=== PATIENT | male | born 1955 | race Caucasian/White ===

== ENCOUNTER 2016-07-12 19:38 | Emergency (ER) | payer OTHER ==
[~2016-07-12] VITALS: Ht 175.3 cm; Wt 78.0 kg
[~2016-07-12 19:38] MED LIST: BACTRIM DS TAB1 EAC1 ORAL; IBUPROFEN600 MG ORAL; KEFLEX500 MG ORAL; NORCO 5-325 TA1 EACH ORAL; SULFAMETHOXAZO1 EAC2 ORAL
[2016-07-12 19:59] VITALS: BP 136/65
[2016-07-12] MEDS ORDERED: Lidocaine 1% 10mg/ml/Epi 0.005mg/ml 30ml vial INJ ONE (20:15)
[2016-07-12] MEDS ORDERED: Bactrim DS (160mg/800mg) tab ORAL ONE (20:15)
[2016-07-12] MEDS ORDERED: Cephalexin 500mg cap ORAL ONE (20:15)
[2016-07-12] MEDS ORDERED: KEFLEX500 MG ORAL (20:41)
[2016-07-12] MEDS ORDERED: SULFAMETHOXAZO1 EAC2 ORAL (20:41)
[2016-07-12 20:50] VITALS: BP 131/75
--- NOTE | 2016-07-12 22:38 | Emergency Room Report ---
History of Present Illness General Chief Complaint: Skin Rash/Abscess Source: Patient Present Illness HPI Patient is a a 61-year-old male presented after increased right upper extremity pain. The patient gradual onset of symptoms of the past week. Patient reported having used injection drugs. He had subjective fever. He denied any other locations of pain. He had not been vomiting or having any chest pain. Allergies: Coded Allergies: No Known Allergies (Unverified , 07/17/14) Patient History Past Medical History: see triage record Reviewed Nursing Documentation: PMH: Agreed, PSxH: Agreed Nursing Documentation-PMH Past Medical History: No Stated History Hx Gastrointestinal Problems: No - HEP C, Appendectomy in 1984 Review of Systems All Other Systems: negative except mentioned in HPI Physical Exam Vital Signs Date Time Temp Pulse Resp B/P Pulse Ox O2 Delivery O2 Flow Rate FiO2 07/12/16 19:49 97.5 83 15 136/65 98 Room Air Procedures Incision and Drainage Incision and Drainage : Consent: Written Site: right upper arm Blade Size: 15 I & D Procedure: betadine prep, sterile drapes applied, sterile dressing applied, gauze wick placed Wound Location: upper extremity Wound's Depth, Shape: superficial Wound Length (cm): 1 Wound Explored: clean Anesthesia: Lidocaine w/ Epi Volume Anesthetic (ccs): 5 Patient Tolerated: Well Complications: None Medical Decision Making Diagnostic Impression: Primary Impression: Abscess ER Course The patient was noted to have right upper extremity pain and swelling. Differential diagnosis included but was not limited to fracture, contusion, , vascular insufficiency, aneurysm, cellulitis, abscess. The patient was consented for incision and drainage. The purulent material was expressed from patient's skin incision. Patient given oral antibiotics.The patient is advised to follow up with primary care doctor in 1-2 days. Patient is advised to return if any worsening condition or if any changes in status that are concerning. Last Vital Signs Date Time Temp Pulse Resp B/P Pulse Ox O2 Delivery O2 Flow Rate FiO2 07/12/16 20:50 82 14 131/75 98 Room Air 07/12/16 19:59 97.5 Status: improved Disposition: HOME, SELF-CARE Condition: Stable Scripts Cephalexin* (KEFLEX*) 500 Mg Capsule 500 MG ORAL Q6H, #28 CAP Prov: Roberto Champagne 07/12/16 Sulfamethoxazole/Trimethoprim Ds Tablet* (SULFAMETHOXAZOLE-TMP DS TABLET*) 1 Each Tablet 1 TAB ORAL TWICE A DAY, #20 TAB Prov: Roberto Champagne 07/12/16 Patient Instructions: Roberto Torres Jul 12, 2016 22:38
== END 2016-07-12 20:50 | disposition home or self-care (01) ==
LOC: EMR 19:55
DX: L02.413 Cutaneous abscess of right upper limb (principal); B19.20 Unspecified viral hepatitis C without hepatic coma; Z90.49 Acquired absence of other specified parts of digestive tract; F19.10 Other psychoactive substance abuse, uncomplicated
CPT/HCPCS: 10060

== ENCOUNTER 2016-11-09 20:42 | Emergency (ER) | payer OTHER ==
[~2016-11-09] VITALS: Ht 175.3 cm; Wt 79.4 kg
--- NOTE | 2016-11-09 21:10 | Emergency Room Report ---
History of Present Illness General Chief Complaint: Upper Extremity Injury Source: Patient Present Illness HPI This is a 61-year-old male with a history of IV drug use. He presents with an abscess to the left arm. This has been there for 3-4 days. Painful. Swollen. This happen before. He is right-hand dominant. No fever or chills. No nausea no vomiting. Worse with palpation. Allergies: Coded Allergies: No Known Allergies (Unverified , 07/17/14) Patient History Past Medical History: see triage record, old chart reviewed Past Surgical History: other Pertinent Family History: none Social History: Denies: drug use Immunizations: other Reviewed Nursing Documentation: PMH: Agreed, PSxH: Agreed Review of Systems Eye: Denies: blurred vision, eye pain ENT: Denies: ear pain, nose congestion, throat swelling Respiratory: Denies: cough, shortness of breath Cardiovascular: Denies: chest pain, palpitations Gastrointestinal: Denies: abdominal pain, diarrhea, nausea, vomiting Musculoskeletal: Denies: back pain, joint pain Skin: Denies: rash Neurological: Denies: headache, numbness Endocrine: Denies: increased thirst, increased urine Hematologic/Lymphatic: Denies: easy bruising All Other Systems: negative except mentioned in HPI Physical Exam Vital Signs Date Time Temp Pulse Resp B/P Pulse Ox O2 Delivery O2 Flow Rate FiO2 11/09/16 20:46 98.2 90 18 126/74 100 Room Air vitals normal Sp02 EP Interpretation: reviewed, normal General Appearance: well appearing, no apparent distress, alert Head: normocephalic, atraumatic Eyes: bilateral eye EOMI, bilateral eye PERRL ENT: hearing grossly normal, normal pharynx Neck: full range of motion, supple, no meningismus Respiratory: chest non-tender, lungs clear, normal breath sounds Cardiovascular #1: regular rate, rhythm, no murmur Gastrointestinal: normal bowel sounds, non tender, no mass, no organomegaly, no bruit, non-distended Musculoskeletal: back normal, gait/station normal, normal range of motion, other - Left upper arm: Is a large abscess measuring about 5-6 cm x 4 cm to the tricep area. Warm to the touch. Full range of motion the elbow. Full range of motion of the shoulder. He has IV jansen. Neurologic: alert, oriented x3 Psychiatric: mood/affect normal Skin: warm/dry Procedures Incision and Drainage Incision and Drainage : Consent: Verbal Site: Left tricep Blade Size: 11 I & D Procedure: betadine prep, sterile drapes applied, sterile dressing applied, gauze wick placed Wound Location: upper extremity Anesthesia: 1% Lidocaine Volume Anesthetic (ccs): 5 Patient Tolerated: Well Complications: None Progress Area clean with Betadine. Local anesthetic 1% lidocaine. I made a 3 cm incision. There was a lot of scar tissue. I had to go deeper to get to the pus pocket. There was moderate amount of pus expressed.-related area broken up with Larissa forcep. I urinated wound with a liter of saline. It was then packed with iodoform gauze. Patient tolerated procedure without a problem. Medical Decision Making Diagnostic Impression: Primary Impression: Abscess Additional Impression: Intravenous drug user ER Course Patient with an abscess to his left upper extremity. This is secondary to IV drug use and skin popping. No evidence of foreign body or necrotizing fasciitis. No evidence of septic joint. We'll discharge home. Last Vital Signs Date Time Temp Pulse Resp B/P Pulse Ox O2 Delivery O2 Flow Rate FiO2 11/09/16 20:46 98.2 90 18 126/74 100 Room Air Status: improved Disposition: HOME, SELF-CARE Condition: Stable Scripts Hydrocodone/Acetaminophen 5-325* (HYDROCODONE/ACETAMINOPHEN 5-325*) 1 Each Tablet 1 TAB ORAL Q6H Y for For Pain, #20 TAB 0 Refills Prov: POLLY SANTIAGO M.D. 11/09/16 Trimethoprim/Sulfamethoxazole 160/800* (BACTRIM DS TABLET*) 1 Each Tablet 1 TAB ORAL Q12H, #14 TAB 0 Refills Prov: POLLY SANTIAGO M.D. 11/09/16 Additional Instructions: Abstain from drugs and alcohol. Followup with your doctor or return here in 2 days for recheck. Return sooner if worse. POLLY SANTIAGO M.D. November 09, 2016 21:10
[2016-11-09] MEDS ORDERED: Bactrim DS (160mg/800mg) tab ORAL ONE (21:15)
[2016-11-09] MEDS ORDERED: Norco 5mg/325mg tab ONE (21:23)
[2016-11-09] MEDS ORDERED: HYDROCODON-ACE1 EA15 ORAL (21:37)
[2016-11-09] MEDS ORDERED: BACTRIM DS TAB1 EAC1 ORAL (21:37)
[2016-11-09] MEDS ORDERED: Norco 5mg/325mg tab ORAL ONE (21:45)
[2016-11-09 21:48] VITALS: BP 128/76
[2016-11-09 21:49] VITALS: BP 126/74
== END 2016-11-09 21:50 | disposition home or self-care (01) ==
LOC: EMR 21:15
DX: L02.414 Cutaneous abscess of left upper limb (principal); F19.20 Other psychoactive substance dependence, uncomplicated
CPT/HCPCS: 10060; 99284

== ENCOUNTER 2016-11-22 09:17 | Emergency (ER) | payer OTHER ==
[~2016-11-22] VITALS: Ht 175.3 cm; Wt 74.8 kg
[~2016-11-22 09:17] MED LIST changes: +HYDROCODON-ACE1 EA15 ORAL
[2016-11-22 09:23] VITALS: BP 123/71
[2016-11-22] MEDS ORDERED: Famotidine 20 MG/ 2ML VIAL IVP ONE (09:30)
[2016-11-22 10:29] VITALS: BP 123/53
[2016-11-22 12:12] VITALS: BP 125/63
[2016-11-22 12:46] VITALS: BP 125/63
--- NOTE | 2016-11-22 14:10 | Emergency Room Report ---
History of Present Illness General Chief Complaint: Nausea, Vomiting, and Diarrhea Source: Patient Present Illness HPI 61-year-old male presents ED complaining of nausea and vomiting. States that he used heroin last night. States that this morning when driving he felt nausea and vomiting. Denies use heroine today. Denies abdominal pain. Denies any other drug use. Denies chest pain or shortness of breath. No other aggravating relieving factors. Denies any other associated symptoms Allergies: Coded Allergies: No Known Allergies (Unverified , 07/17/14) Patient History Past Medical History: none Past Surgical History: none Pertinent Family History: none Social History: Denies: alcohol use, drug use, smoking Immunizations: UTD Reviewed Nursing Documentation: PMH: Agreed, PSxH: Agreed Nursing Documentation-PMH Past Medical History: No Stated History Review of Systems All Other Systems: negative except mentioned in HPI Physical Exam Vital Signs Date Time Temp Pulse Resp B/P Pulse Ox O2 Delivery O2 Flow Rate FiO2 11/22/16 09:09 96.1 75 20 123/71 100 Room Air Sp02 EP Interpretation: reviewed, normal General Appearance: alert, GCS 15, non-toxic, mild distress Head: normocephalic, atraumatic Eyes: bilateral eye PERRL, bilateral eye normal inspection ENT: hearing grossly normal, normal pharynx, no angioedema, normal voice Neck: full range of motion, supple/symm/no masses Respiratory: chest non-tender, lungs clear, normal breath sounds, speaking full sentences Cardiovascular #1: regular rate, rhythm, no edema Cardiovascular #2: 2+ carotid (R), 2+ carotid (L), 2+ radial (R), 2+ radial (L) , 2+ dorsalis pedis (R), 2+ dorsalis pedis (L) Gastrointestinal: normal bowel sounds, non tender, soft, non-distended, no guarding, no rebound Rectal: deferred Genitourinary: normal inspection, no CVA tenderness Musculoskeletal: back normal, gait/station normal, normal range of motion, non- tender Neurologic: alert, oriented x3, responsive, motor strength/tone normal, sensory intact, speech normal Psychiatric: judgement/insight normal, memory normal, mood/affect normal, no suicidal/homicidal ideation Reflexes: 3+ bicep (R), 3+ bicep (L), 3+ tricep (R), 3+ tricep (L), 3+ knee (R) , 3+ knee (L) Skin: normal color, no rash, warm/dry, well hydrated Lymphatic: no adenopathy Medical Decision Making Diagnostic Impression: Primary Impression: Heroin abuse Additional Impression: Gastritis Qualified Codes: K29.00 - Acute gastritis without bleeding ER Course Hospital Course 61-year-old M presents to ED with N/V after using heroin last night differential diagnosis: gastritis, SBO, cholecystits Clinical course Patient placed on stretcher. On ekg monitor tech. After initial history and physical I ordered labs, IV fluids, Zofran and pepcid patient declined lab draw Upon reassessment, patient states symptoms has improved. I feel this is a highly complex case requiring extensive working including EKG/ Rhythm strip, Xray/CT/US, Blood/urine lab work, repeat exams while in ED, and administration of strong opiates/narcotics for pain control, admission to hospital or close patient follow up. Diagnosis - heroin abuse, gastritis Stable and discharged to home with prescriptions for zofran. Followup with PMD. Return to ED if symptoms recur or worsen Chest X-Ray Diagnostic Results Chest X-Ray Ordered: No Last Vital Signs Date Time Temp Pulse Resp B/P Pulse Ox O2 Delivery O2 Flow Rate FiO2 11/22/16 12:46 96.1 72 16 125/63 100 Room Air Status: improved Disposition: HOME, SELF-CARE Condition: Stable Patient Instructions: Opioid Withdrawal PALAK HILL M.D. Nov 22, 2016 14:10
== END 2016-11-22 12:46 | disposition home or self-care (01) ==
LOC: EDBD 09:17 → EMR 09:39
DX: F11.10 Opioid abuse, uncomplicated (principal); K29.70 Gastritis, unspecified, without bleeding
CPT/HCPCS: 96360; 96361; 96374; 96375; 99284; J2405; S0028

== ENCOUNTER 2017-08-14 15:25 | Emergency (ER) | payer MEDICAID ==
[~2017-08-14] VITALS: Ht 175.3 cm; Wt 74.8 kg
[2017-08-14] MEDS ORDERED: Morphine Sulfate 4mg/ml Inj IVP ONE (16:00)
[2017-08-14] MEDS ORDERED: Vancomycin 1 GM in NS 275 ML IV ONE (16:00)
[2017-08-14] MEDS ORDERED: Vancomycin 1gm inj IVPB ONE (16:53)
[2017-08-14 17:00] VITALS: BP 130/67
[2017-08-14] MEDS ORDERED: ROXICODONE15 MG ORAL (17:01)
[2017-08-14 17:07] LABS: BASOPHILS % (AUTO) 1.1 % (0.0-2.0); EOSINOPHILS % (AUTO) 2.1 % (0.0-3.0); HEMATOCRIT 42.2 % (42.0-52.0); HEMOGLOBIN 13.8 G/DL (14.2-18.0); LYMPHOCYTES % (AUTO) 18.4 % (20.0-45.0); MEAN CORPUSCULAR VOLUME 86 FL (80-99); MONOCYTES % (AUTO) 5.9 % (1.0-10.0); NEUTROPHILS % (AUTO) 72.5 % (45.0-75.0); PLATELET COUNT 269 K/UL (150-450); RED BLOOD COUNT 4.93 M/UL (4.70-6.10); RED CELL DISTRIBUTION WIDTH 13.7 % (11.6-14.8); WHITE BLOOD COUNT 12.4 K/UL (4.8-10.8)
[2017-08-14 17:23] LABS: ANION GAP 7 mmol/L (5-15); BLOOD UREA NITROGEN 15 mg/dL (7-18); CALCIUM 9.4 MG/DL (8.5-10.1); CARBON DIOXIDE 29 MMOL/L (21-32); CHLORIDE 99 MMOL/L (98-107); POTASSIUM 3.6 MMOL/L (3.5-5.1); SODIUM 135 MMOL/L (136-145)
[2017-08-14 17:28] LABS: ALANINE AMINOTRANSFERASE 33 U/L (12-78); ALBUMIN 2.8 G/DL (3.4-5.0); ALBUMIN/GLOBULIN RATIO 0.5 (1.0-2.7); ALKALINE PHOSPHATASE 223 U/L (46-116); ASPARTATE AMINO TRANSFERASE 29 U/L (15-37); BILIRUBIN,TOTAL 0.3 MG/DL (0.2-1.0)
[2017-08-14 18:00] VITALS: BP 117/67
[2017-08-14] MEDS ORDERED: BACTRIM DS TAB1 EAC1 ORAL (18:10)
[2017-08-14] MEDS ORDERED: CLINDAMYCIN HC150 MG ORAL (18:10)
[2017-08-14 19:00] VITALS: BP 123/68
--- NOTE | 2017-08-14 21:57 | Emergency Room Report ---
History of Present Illness General Chief Complaint: Skin Rash/Abscess Source: Patient, Medical Record Present Illness HPI Patient has a history of IV drug use. Patient states that he uses heroin. His last use was yesterday. He has had pain in his left upper extremity for the last 4 days. He states that the area has become swollen. He believes there is an abscess there. He denies any fever. Denies any nausea vomiting diarrhea chills. Symptoms noted the severe.No other modifying factors. No other associated signs and symptoms. No other complaints were noted. Allergies: Coded Allergies: No Known Allergies (Unverified , 07/17/14) Patient History Past Medical History: other - IV drug use Past Surgical History: none Pertinent Family History: none Social History: Reports: smoking, alcohol use, drug use Reviewed Nursing Documentation: PMH: Agreed, PSxH: Agreed Nursing Documentation-PMH Past Medical History: No History, Except For Review of Systems All Other Systems: negative except mentioned in HPI Physical Exam Vital Signs Date Time Temp Pulse Resp B/P (MAP) Pulse Ox O2 Delivery O2 Flow Rate FiO2 08/14/17 15:37 98.5 98 18 134/67 96 Room Air 98.4 Sp02 EP Interpretation: reviewed, normal General Appearance: normal inspection, well appearing, no apparent distress, alert Head: atraumatic Eyes: bilateral eye normal inspection, bilateral eye PERRL ENT: normal ENT inspection, hearing grossly normal, normal voice Neck: normal inspection, full range of motion, supple, no bony tend Respiratory: normal inspection, lungs clear, normal breath sounds, no respiratory distress, no retraction, no wheezing Cardiovascular #1: regular rate, rhythm, no edema Gastrointestinal: normal inspection, normal bowel sounds, non tender, soft, no guarding, no hernia Genitourinary: no CVA tenderness Musculoskeletal: back normal, swelling - left upper extremity Neurologic: normal inspection, alert, responsive, speech normal Psychiatric: normal inspection, judgement/insight normal, mood/affect normal Skin: normal inspection, normal color, no rash Medical Decision Making Diagnostic Impression: Primary Impression: Cellulitis Additional Impressions: Intravenous drug user Abscess ER Course Patient presents emergency department today complaining left upper extremity pain and swelling. Differential considerations include abscess, cellulitis, inflammation just to name a few. Patient exam is consistent with an abscess. I felt the patient require IV antibiotics and likely admission to the hospital. Also felt the patient require any incision and drainage. Procedure note: Using 18-gauge needle patient's left upper extremity was prepped in a sterile manner I was able to aspirate approximately 3 mL of pus. Patient tolerated procedure well difficulty. The needle was removed. Because there is evidence of abscess and pus in patient's left upper extremity I felt the patient require incision and drainage. Procedure note: After patient's left upper extremity was prepped in a sterile manner and verbal consent was obtained using a 11 blade I made a 1 cm incision over the area of maximal swelling. I then it try to explore with a clamp. Unfortunately I wasn' t able to obtain any pus. Patient did receive local anesthetic prior to this procedure. Patient saw procedure well difficulty. Given the patient evidence of abscess cellulitis and I wasn't able to express further pus I was concerned that there might be abscess that perhaps deeper in the muscular area. I felt that this likely will require specialist evaluation and possible drainage by IR orthopedics. I wanted to admit the patient the patient declined to be admitted. Patient understands risks of leaving the hospital against senior medical writer. Patient did agree to receive one dose of vancomycin prior discharge. Patient understands risks of leaving against senior medical writer includes or loss of life and limb. Patient voiced understanding. Patient left the hospital AGAINST MEDICAL ADVICE the patient was given prescription antibiotics for clindamycin and Bactrim he is advised to emergency Department states that he will consider returning in the morning for to be admitted for IV antibiotics. Labs Test 08/14/17 16:45 White Blood Count 12.4 K/UL (4.8-10.8) Red Blood Count 4.93 M/UL (4.70-6.10) Hemoglobin 13.8 G/DL (14.2-18.0) Hematocrit 42.2 % (42.0-52.0) Mean Corpuscular Volume 86 FL (80-99) Mean Corpuscular Hemoglobin 28.1 PG (27.0-31.0) Mean Corpuscular Hemoglobin Concent 32.8 G/DL (32.0-36.0) Red Cell Distribution Width 13.7 % (11.6-14.8) Platelet Count 269 K/UL (150-450) Mean Platelet Volume 6.1 FL (6.5-10.1) Neutrophils (%) (Auto) 72.5 % (45.0-75.0) Lymphocytes (%) (Auto) 18.4 % (20.0-45.0) Monocytes (%) (Auto) 5.9 % (1.0-10.0) Eosinophils (%) (Auto) 2.1 % (0.0-3.0) Basophils (%) (Auto) 1.1 % (0.0-2.0) Prothrombin Time 10.5 SEC (9.30-11.50) Prothromb Time International Ratio 1.0 (0.9-1.1) Activated Partial Thromboplast Time 30 SEC (23-33) Sodium Level 135 MMOL/L (136-145) Potassium Level 3.6 MMOL/L (3.5-5.1) Chloride Level 99 MMOL/L (98-107) Carbon Dioxide Level 29 MMOL/L (21-32) Anion Gap 7 mmol/L (5-15) Blood Urea Nitrogen 15 mg/dL (7-18) Creatinine 1.0 MG/DL (0.55-1.30) Estimat Glomerular Filtration Rate > 60 mL/min (>60) Glucose Level 119 MG/DL (74-106) Calcium Level 9.4 MG/DL (8.5-10.1) Total Bilirubin 0.3 MG/DL (0.2-1.0) Aspartate Amino Transf (AST/SGOT) 29 U/L (15-37) Alanine Aminotransferase (ALT/SGPT) 33 U/L (12-78) Alkaline Phosphatase 223 U/L (46-116) Total Protein 7.9 G/DL (6.4-8.2) Albumin 2.8 G/DL (3.4-5.0) Globulin 5.1 g/dL Albumin/Globulin Ratio 0.5 (1.0-2.7) Last Vital Signs Date Time Temp Pulse Resp B/P (MAP) Pulse Ox O2 Delivery O2 Flow Rate FiO2 08/14/17 19:39 98.3 08/14/17 19:00 123/68 08/14/17 18:00 76 20 98 Room Air Status: improved Disposition: AGAINST MEDICAL ADVICE Condition: Serious Scripts Clindamycin Hcl* (CLINDAMYCIN HCL*) 150 Mg Capsule 300 MG ORAL FOUR TIMES A DAY for 10 Days, CAP Prov: MONIKA SIMON M.D. 08/14/17 Trimethoprim/Sulfamethoxazole 160/800* (BACTRIM DS TABLET*) 1 Each Tablet 1 TAB ORAL Q12H, #20 TAB 0 Refills Prov: MONIKA SIMON M.D. 08/14/17 Referrals: [facility],REFERRING (PCP) Patient Instructions: MONIKA Treviño M.D. Aug 14, 2017 21:57
== END 2017-08-14 19:00 | disposition home or self-care (01) ==
LOC: EDBEDREQ 16:28 → EMR 17:42
DX: L03.114 Cellulitis of left upper limb (principal); F19.10 Other psychoactive substance abuse, uncomplicated
CPT/HCPCS: 10060; 36415; 80053; 85025; 85610; 85730; 96361; 96374; 99284; J2270; J3370; J7050

== ENCOUNTER 2018-08-28 11:21 | Emergency (ER) | payer MEDICAID, OTHER ==
[~2018-08-28] VITALS: Ht 175.3 cm; Wt 74.8 kg
[~2018-08-28 11:21] MED LIST changes: +CLINDAMYCIN HC150 MG ORAL; +ROXICODONE15 MG ORAL
--- NOTE | 2018-08-28 11:30 | NUR ---
ED Nurse Note: AMBULATED IN TO ER FROM HOME DUE TO ABCESS ON RIGHT UPPER ARM X1 WEEK.
[2018-08-28] MEDS ORDERED: NKM (11:38)
[2018-08-28] MEDS ORDERED: oxyCODONE HCL/Acetaminophen 5/325mg ORAL ONE (12:00)
[2018-08-28] MEDS ORDERED: Lidocaine 1% 10mg/ml/Epi 0.005mg/ml 30ml vial INJ ONE (12:00)
--- NOTE | 2018-08-28 12:13 | Emergency Room Report ---
History of Present Illness General Chief Complaint: Skin Rash/Abscess Source: Patient Present Illness HPI 63-year-old male with no major medical problems comes ER with complaints of having right arm redness pain and swelling for about one week, denies fever, abdominal pain, chest pain, any other symptoms. Allergies: Coded Allergies: No Known Allergies (Unverified , 08/28/18) Patient History Past Medical History: see triage record Reviewed Nursing Documentation: PMH: Agreed; PSxH: Agreed Nursing Documentation-PMH Past Medical History: No History, Except For Review of Systems All Other Systems: negative except mentioned in HPI Physical Exam Vital Signs Date Time Temp Pulse Resp B/P (MAP) Pulse Ox O2 Delivery O2 Flow Rate FiO2 08/28/18 11:36 98.1 77 16 136/77 97 Room Air Sp02 EP Interpretation: reviewed, normal General Appearance: no apparent distress, alert, non-toxic Head: normocephalic Eyes: left eye normal inspection, left eye PERRL, left eye EOMI ENT: normal ENT inspection, hearing grossly normal, normal pharynx, no angioedema, normal voice, moist mucus membranes Neck: normal inspection, full range of motion, supple, supple/symm/no masses Respiratory: chest non-tender, lungs clear, normal breath sounds, chest symmetrical, palpation of chest normal Cardiovascular #1: normal peripheral pulses, regular rate, rhythm Cardiovascular #2: 2+ radial (R), 2+ radial (L) Gastrointestinal: normal inspection, non tender, soft, no mass, no guarding, no rebound Rectal: deferred Genitourinary: normal inspection, no CVA tenderness Musculoskeletal: back normal, gait/station normal, normal range of motion, non- tender, no calf tenderness Neurologic: alert, responsive, treating machine operator III-XII nml as tested, motor strength/tone normal, sensory intact, speech normal Psychiatric: judgement/insight normal, memory normal, mood/affect normal, no suicidal/homicidal ideation Skin: normal color, warm/dry, normal turgor, other - 4x4cm area under R deltoid area of R proximal arm with erythema, warmth, tenderness, fluctuance Lymphatic: no adenopathy Procedures Incision and Drainage Incision and Drainage : Consent: Verbal Site: RUE Blade Size: 11 I & D Procedure: betadine prep, sterile drapes applied, sterile dressing applied, gauze wick placed Wound Location: upper extremity Anesthesia: 1% Lidocaine, Lidocaine w/ Epi Volume Anesthetic (ccs): 4 Patient Tolerated: Well Complications: None Progress Loculations were broken up using forceps, and 1 inch out of form gauze was used to pack, roughly 3-4 mL of chunky purulent material was expressed, and estimated blood loss was 4 mL. Medical Decision Making Diagnostic Impression: Primary Impression: Cellulitis Additional Impression: Abscess ER Course Patient had abscess I&D, will give oral antibiotics for starting cellulitis, patient is nondiabetic, no history of IV drug use, will discharge with wound check in 2 days.. Last Vital Signs Date Time Temp Pulse Resp B/P (MAP) Pulse Ox O2 Delivery O2 Flow Rate FiO2 08/28/18 11:36 98.1 77 16 136/77 97 Room Air Disposition: HOME, SELF-CARE Condition: Stable TONYA HENDERSON M.D Aug 28, 2018 12:13
[2018-08-28] MEDS ORDERED: Haloperidol 5mg/ml Inj IM ONE (12:15)
[2018-08-28] MEDS ORDERED: LORazepam Inj 2mg/ml 1ml IV ONE (12:15)
--- NOTE | 2018-08-28 12:18 | NUR ---
ED Nurse Note: CLEARIFIED WITH ERMD REGARDING NEW MEDS, RECEIVED VERBAL ORDER TO CANCEL THE HALDOL AND ATIVAN.
[2018-08-28] MEDS ORDERED: IBUPROFEN600 MG ORAL (12:53)
[2018-08-28] MEDS ORDERED: BACTRIM DS TAB1 EAC1 ORAL (12:53)
[2018-08-28 13:00] VITALS: BP 136/77
[2018-08-28 13:16] VITALS: BP 136/77
--- NOTE | 2018-08-28 13:20 | NUR ---
ER DISCHARGE NOTE:pt. had I&D done by ER MD then dry dressing was placed on right arm Patient is cleared to be discharged per ERMD, pt is aox4, on room air, with stable vital signs. pt was given dc and prescription instructions, pt was able to verbalize understanding, pt is able to ambulate with steady gait. pt took all belongings.
== END 2018-08-28 13:56 | disposition home or self-care (01) ==
LOC: EMR 12:21
DX: L03.113 Cellulitis of right upper limb (principal); L02.413 Cutaneous abscess of right upper limb
CPT/HCPCS: 10060; 99282; Z7502

== ENCOUNTER 2019-02-14 14:36 | Inpatient (IN) | payer OTHER ==
[~2019-02-14] VITALS: Ht 175.3 cm; Wt 68.5 kg
[~2019-02-14 14:36] MED LIST changes: +NKM
[2019-02-14 14:44] VITALS: BP 122/71
--- NOTE | 2019-02-14 14:52 | NUR ---
ED Nurse Note: Patient walked into ED c/o right upper arm/ left upper arm "infection" and warmth, nodules for 2 weeks after using IV drug injections. patient reports he was here seen at [facility] [place] [facility] and was prescribed antibiotics for the same symptoms before, which was helping with his symptoms. however, 2 weesk the symptoms got worse all of a sudden. patient reports he feels like he has fever and chills intermittently for 2 weeks. Patient is alert awake x4 ambulatory steady gait, breathing unlabored and even.
--- NOTE | 2019-02-14 16:37 | NUR ---
ED Nurse Note: called lab for lab draw.
[2019-02-14 17:37] LABS: HEMATOCRIT 33.8 % (42.0-52.0); HEMOGLOBIN 11.2 G/DL (14.2-18.0); MEAN CORPUSCULAR VOLUME 82 FL (80-99); PLATELET COUNT 311 K/UL (150-450); RED BLOOD COUNT 4.13 M/UL (4.70-6.10); RED CELL DISTRIBUTION WIDTH 13.2 % (11.6-14.8); WHITE BLOOD COUNT 11.6 K/UL (4.8-10.8)
[2019-02-14 17:42] LABS: ANION GAP 9 mmol/L (5-15); BLOOD UREA NITROGEN 17 mg/dL (7-18); CALCIUM 9.3 MG/DL (8.5-10.1); CARBON DIOXIDE 31 MMOL/L (21-32); CHLORIDE 104 MMOL/L (98-107); POTASSIUM 4.2 MMOL/L (3.5-5.1); SODIUM 144 MMOL/L (136-145)
--- NOTE | 2019-02-14 17:56 | Emergency Room Report ---
History of Present Illness General Chief Complaint: Skin Rash/Abscess Source: Patient (Tawana Sparks) Present Illness HPI 63-year-old male presents to the emergency department complaining of 6 out of 10 severity pain, tenderness, swelling and erythema to the right upper extremity x2 weeks. Patient reports multiple lumps in the skin where he was "skin popping "injecting opioids. Patient with history of IV drug use he is currently on methadone he states his last use 4 days ago he denies experiencing withdrawal symptoms at this time. Patient does report that he has been having fevers and chills x2 weeks. He reports past medical history of hepatitis C, thyroid disorder, left eye blindness in addition to his drug use. He denies chest pain, palpitations or shortness of breath. No other aggravating or relieving factors at this time. The patient states he is up-to-date with his tetanus vaccinations. (Tawana Sparks) Allergies: Coded Allergies: No Known Allergies (Unverified , 08/28/18) Patient History Past Medical History: see triage record Past Surgical History: none Pertinent Family History: none Social History: Reports: drug use - IVDU opiates Reviewed Nursing Documentation: PMH: Agreed; PSxH: Agreed (Tawana Sparks) Nursing Documentation-PMH Past Medical History: No History, Except For History Of Psychiatric Problem: Yes - DRUG USE (Tawana Sparks) Review of Systems All Other Systems: negative except mentioned in HPI (Tawana Sparks) Physical Exam Vital Signs Date Time Temp Pulse Resp B/P (MAP) Pulse Ox O2 Delivery O2 Flow Rate FiO2 02/14/19 14:44 98.1 93 18 122/71 100 Room Air Sp02 EP Interpretation: reviewed, normal General Appearance: alert, GCS 15, non-toxic, mild distress Head: normocephalic, atraumatic Eyes: bilateral eye normal inspection, bilateral eye PERRL ENT: hearing grossly normal, normal voice Neck: full range of motion Respiratory: lungs clear, normal breath sounds, no respiratory distress, no wheezing, speaking full sentences Cardiovascular #1: regular rate, rhythm, normal capillary refill Cardiovascular #2: 2+ radial (R), 2+ radial (L) Musculoskeletal: back normal, gait/station normal, normal range of motion, non- tender - no bony ttp, inflammation - large palpable nodule of the right bicep medially. Neurologic: alert, oriented x3, responsive, motor strength/tone normal, sensory intact, speech normal, grossly normal Psychiatric: judgement/insight normal Skin: other - This patient has multiple track markings on bilateral upper extremities. Multiple possible indurated nodules of the soft tissue throughout the bilateral upper extremities. There is a larger palpable nodule on the medial aspect of the right biceps area which has surrounding erythema and warmth to palpation. This large nodule is approximately 3.5 cm in diameter no obvious palpable fluctuance. Lymphatic: no adenopathy (Tawana Sparks) Medical Decision Making PA Attestation Dr. Zheng Is my supervising Physician whom patient management has been discussed with. (Tawana Sparks) Diagnostic Impression: Primary Impression: Cellulitis Qualified Codes: L03.113 - Cellulitis of right upper limb Additional Impression: Heroin abuse ER Course 63-year-old male presents to the emergency department complaining of 6 out of 10 severity pain, tenderness, swelling and erythema to the right upper extremity x2 weeks. Patient reports multiple lumps in the skin where he was "skin popping "injecting opioids. Patient with history of IV drug use he is currently on methadone he states his last use 4 days ago he denies experiencing withdrawal symptoms at this time. Patient does report that he has been having fevers and chills x2 weeks. He reports past medical history of hepatitis C, thyroid disorder, left eye blindness in addition to his drug use. He denies chest pain, palpitations or shortness of breath. No other aggravating or relieving factors at this time. The patient states he is up-to-date with his tetanus vaccinations. Ddx considered but are not limited to cellulitis, abscess, necrotizing fasciitis , insect bites just to name a few. Vital signs: are WNL, pt. is afebrile H&PE are most consistent with soft tissue cellulitis with suspicion for deep tissue abscess in a patient with IV drug use. --This patient has multiple track markings on bilateral upper extremities. Multiple possible indurated nodules of the soft tissue throughout the bilateral upper extremities. There is a larger palpable nodule on the medial aspect of the right biceps area which has surrounding erythema and warmth to palpation. This large nodule is approximately 3.5 cm in diameter no obvious palpable fluctuance. ORDERS: -CBC: WBC's 11.6 -BMP: Normal renal function, patient is candidate for IV contrast -Lactic acid: 1.6 -Blood cultures: Pending -CRP: elevated at 17.4 -CT R UE w. Contrast & CT L UE w. Contrast:Patient was unable to tolerate IV contrast and imaging study was not able to be completed. ED INTERVENTIONS: - IV Vancomycin and Zosyn Consultation w. Dr. Ledesma regarding possible ST abscess in complicated area. DISPOSITION: at this time pt. will be admitted to Dr. Melchor for Cellulitis requiring IV antibiotics and surgical evaluation of nodules/abscess of Right UE. Dr. Melchor agreed to admit the pt. and to continue pt. care management. Labs Test 02/14/19 17:10 White Blood Count 11.6 K/UL (4.8-10.8) Red Blood Count 4.13 M/UL (4.70-6.10) Hemoglobin 11.2 G/DL (14.2-18.0) Hematocrit 33.8 % (42.0-52.0) Mean Corpuscular Volume 82 FL (80-99) Mean Corpuscular Hemoglobin 27.1 PG (27.0-31.0) Mean Corpuscular Hemoglobin Concent 33.2 G/DL (32.0-36.0) Red Cell Distribution Width 13.2 % (11.6-14.8) Platelet Count 311 K/UL (150-450) Mean Platelet Volume 5.0 FL (6.5-10.1) Neutrophils (%) (Auto) % (45.0-75.0) Lymphocytes (%) (Auto) % (20.0-45.0) Monocytes (%) (Auto) % (1.0-10.0) Eosinophils (%) (Auto) % (0.0-3.0) Basophils (%) (Auto) % (0.0-2.0) Differential Total Cells Counted 100 Neutrophils % (Manual) 77 % (45-75) Lymphocytes % (Manual) 14 % (20-45) Monocytes % (Manual) 5 % (1-10) Eosinophils % (Manual) 3 % (0-3) Basophils % (Manual) 0 % (0-2) Band Neutrophils 1 % (0-8) Platelet Estimate Adequate Platelet Morphology Normal Hypochromasia 1+ Anisocytosis 1+ Erythrocyte Sedimentation Rate 86 MM/HR (0-20) Sodium Level 144 MMOL/L (136-145) Potassium Level 4.2 MMOL/L (3.5-5.1) Chloride Level 104 MMOL/L (98-107) Carbon Dioxide Level 31 MMOL/L (21-32) Anion Gap 9 mmol/L (5-15) Blood Urea Nitrogen 17 mg/dL (7-18) Creatinine 1.0 MG/DL (0.55-1.30) Estimat Glomerular Filtration Rate > 60 mL/min (>60) Glucose Level 96 MG/DL (74-106) Lactic Acid Level 1.60 mmol/L (0.4-2.0) Calcium Level 9.3 MG/DL (8.5-10.1) C-Reactive Protein, Quantitative 17.4 mg/dL (0.00-0.90) (Tawana Sparks) ER Course Patient with bilateral cellulitis of both arms and abscesses that may be amenable to drainage. We will admit patient for IV antibiotics, as well as evaluation by general surgery (Ken Zheng MD) EKG Diagnostic Results EP Interpretation: Dr. Zheng Rate: normal - 73 BPM Rhythm: NSR ST Segments: no acute changes ASA given to the pt in ED: No PA Scribe Text This Interpretation was scribed by DOREEN Sparks. (Tawana Sparks) CT/MRI/US Diagnostic Results CT/MRI/US Diagnostic Results #1: Imaging Test Ordered: CT R UE w. Contrast Impression Patient was unable to tolerate IV contrast and imaging study was not able to be completed. CT/MRI/US Diagnostic Results #2: Imaging Test Ordered: CT L UE w. Contrast: Impression Patient was unable to tolerate IV contrast and imaging study was not able to be completed. (Tawana Sparks) Last Vital Signs Date Time Temp Pulse Resp B/P (MAP) Pulse Ox O2 Delivery O2 Flow Rate FiO2 02/14/19 14:44 98.1 93 18 122/71 (88) 100 Room Air (Tawana Sparks) Disposition: ADMITTED INPATIENT Condition: Serious Physician Consult: Dr. Ledesma ( Surgery) (Tawana Sparks) Referrals: [facility],REFERRING (PCP) Tawana Sparks Feb 14, 2019 17:56 Ken Zheng MD Feb 17, 2019 06:06
--- NOTE | 2019-02-14 18:00 | NUR ---
ED Nurse Note: patient went to CT scan.
[2019-02-14] MEDS ORDERED: Piperacillin/Tazobactam 2.25 GM in NS 110 ML IVPB ONE (18:30)
[2019-02-14] MEDS ORDERED: Vancomycin 1.5 GM in NS 275 ML IVPB ONE (18:30)
--- NOTE | 2019-02-14 18:34 | NUR ---
ED Nurse Note: patient still in CT, unable to give medication as ordered at this time.
--- NOTE | 2019-02-14 18:44 | NUR ---
ED Nurse Note: attempted to give report to Yue JONES at 4E, but unable to, since patient is still down in CT and needs to get IV antibiotics. Charge nurse Jahaira made aware.
--- NOTE | 2019-02-14 19:05 | NUR ---
ED Nurse Note: returned from CT
--- NOTE | 2019-02-14 19:05 | NUR ---
ED Nurse Note: patient came back from CT scan in stable condition.
--- NOTE | 2019-02-14 19:06 | NUR ---
HAND-OFF: Report given to [Gerri JONES].
--- NOTE | 2019-02-14 19:11 | NUR ---
ED Nurse Note: endorsed to Gerri JONES that patient was c/o pain while flushing IV contrast down at the CT scan.
--- NOTE | 2019-02-14 19:12 | NUR ---
ED Nurse Note: patient came back from using restroom. Gerri RN is giving zosyn at bedside.
--- NOTE | 2019-02-14 19:45 | NUR ---
ED Nurse Note: notied pt of the admission and resident states he has to go home to feed the dogs and other personal reasons. ATB is infusing at this time. pt states to let him think about it while the ABx is infusing.
[2019-02-14] MEDS ORDERED: Vancomycin 1.5gm vial IVPB ONE (19:55)
[2019-02-14] MEDS ORDERED: LORazepam Inj 2mg/ml 1ml IV PRN (20:15)
[2019-02-14] MEDS ORDERED: Albuterol/Ipratropium 3ml neb HHN PRN (20:15)
[2019-02-14] MEDS ORDERED: HYDROcodone/Acetamin 5/325 tab ORAL PRN (20:15)
--- NOTE | 2019-02-14 20:31 | NUR ---
ER DISCHARGE NOTE: Pt decieded to be admitted. Pt was then transported to room 420 accompanied by end stapler via W/C in stable condition. VSS. report given to ROBERT Churchill
--- NOTE | 2019-02-14 21:30 | NUR ---
NURSE NOTES: Received patient from ER, via gurney, patient is awake, alert, oriented x 4, ambulatory with steady gate, able to make his needs known, IV site is clean dry and intact. Oriented to the room, call light is within reach, bed is lowered, locked and alarm is on. Belongings list been verified, items are accounted for. Will continue to monitor for safety and comfort.
[2019-02-14] MEDS: Heparin 5000 units/ml inj SUBQ SCH (21:43)
[2019-02-15 00:03] VITALS: BP 112/89
[2019-02-15] MEDS: Vancomycin 750mg/NS 275ml IVPB SCH ×4 (03:30→12:00)
[2019-02-15 04:00] VITALS: BP 127/78
[2019-02-15] MEDS: Piperacillin/Tazobactam 3.375 GM in NS 110 ML IVPB SCH ×3 (05:41→23:07)
--- NOTE | 2019-02-15 07:12 | NUR ---
HAND-OFF: Report given to Saurabh JONES.
[2019-02-15 07:14] LABS: BASOPHILS % (AUTO) 0.6 % (0.0-2.0); EOSINOPHILS % (AUTO) 3.4 % (0.0-3.0); HEMATOCRIT 32.1 % (42.0-52.0); MEAN CORPUSCULAR VOLUME 86 FL (80-99); MONOCYTES % (AUTO) 5.2 % (1.0-10.0); NEUTROPHILS % (AUTO) 59.8 % (45.0-75.0); PLATELET COUNT 292 K/UL (150-450); RED BLOOD COUNT 3.72 M/UL (4.70-6.10); RED CELL DISTRIBUTION WIDTH 13.7 % (11.6-14.8); WHITE BLOOD COUNT 9.1 K/UL (4.8-10.8)
--- NOTE | 2019-02-15 07:20 | NUR ---
NURSE NOTES: Received patient in bed, awake, alert and oriented x4. Patient denies any pain or discomfort @ this time. Skin intact, IV intact, no s/s of infiltration. Bed is in lowest position and locked. Room board updated and provide breakfast.Call light within reach. Will continue plan of care.
[2019-02-15 07:22] LABS: ALANINE AMINOTRANSFERASE 14 U/L (12-78); ALBUMIN 2.3 G/DL (3.4-5.0); ALBUMIN/GLOBULIN RATIO 0.5 (1.0-2.7); ALKALINE PHOSPHATASE 124 U/L (46-116); ANION GAP 6 mmol/L (5-15); ASPARTATE AMINO TRANSFERASE 16 U/L (15-37); BILIRUBIN,TOTAL 0.2 MG/DL (0.2-1.0); BLOOD UREA NITROGEN 13 mg/dL (7-18); CALCIUM 8.9 MG/DL (8.5-10.1); CARBON DIOXIDE 30 MMOL/L (21-32); CHLORIDE 109 MMOL/L (98-107); CREATININE 0.9 MG/DL (0.55-1.30); POTASSIUM 3.8 MMOL/L (3.5-5.1); SODIUM 145 MMOL/L (136-145)
[2019-02-15 08:00] VITALS: BP 136/82
[2019-02-15] MEDS: Heparin 5000 units/ml inj SUBQ SCH ×2 (09:54→21:02)
--- NOTE | 2019-02-15 11:31 | Cardiology Report ---
APPROVED REPORT EKG Measurement Heart [id number] Normal sinus rhythm Normal ECG
[2019-02-15 11:34] VITALS: BP 116/62
--- NOTE | 2019-02-15 11:35 | History and Physical ---
History of Present Illness General Date patient seen: Feb 15, 2019 Reason for Hospitalization: Skin Rash/Abscess Present Illness HPI 63 year-old male came to the ED c/o 7/10 pain to the bilateral arms, along with swelling and erythema. No discharge. He is an IV drug user, and has noticed multiple lumps in the skin where he was injecting heroin. He is currently on Methadone too. Last use 4 days prior to admission. He's been having malaise, fever and chills for 2 weeks. He says he is up to date with tetanus vaccine. PMH, PSH : hepatitis C, and left eye blindness, ?thyroid disorder SH: IV drug use Family history: no known diseases Allergies: Coded Allergies: No Known Allergies (Unverified , 08/28/18) Medication History Scheduled Clindamycin Hcl* (Clindamycin Hcl*), 300 MG ORAL FOUR TIMES A DAY No Known Medications* (NKM - No Known Medications*), 0 ., (Reported) Trimethoprim/Sulfamethoxazole 160/800* (Bactrim Ds Tablet*), 1 TAB ORAL Q12H Trimethoprim/Sulfamethoxazole 160/800* (Bactrim Ds Tablet*), 1 TAB ORAL Q12H Trimethoprim/Sulfamethoxazole 160/800* (Bactrim Ds Tablet*), 2 TAB ORAL Q12H Scheduled PRN Hydrocodone/Acetaminophen 5-325* (Hydrocodone/Acetaminophen 5-325*), 1 TAB ORAL Q6H PRN for For Pain Ibuprofen* (Motrin*), 600 MG ORAL Q8H PRN for For Pain OXYCODONE HCl* (Roxicodone*), 15 MG ORAL Q6H PRN for For Pain, (Reported) Patient History Healthcare decision maker Resuscitation status Full Code Advanced Directive on File No Review of Systems Constitutional: Reports: chills, fever Eye: Denies: no symptoms, see HPI, eye pain, blurred vision, tearing, double vision, nose pain, nose congestion, acuity changes, discharge, other ENT: Denies: no symptoms, see HPI, ear pain, ear discharge, nose pain, nose congestion, throat pain, throat swelling, mouth pain, hearing loss, nasal discharge, other Respiratory: Denies: no symptoms, see HPI, cough, orthopnea, shortness of breath, stridor, wheezing, ROCHA, sputum, other Cardiovascular: Denies: no symptoms, see HPI, chest pain, edema, palpitations, syncope, PND, other Gastrointestinal: Denies: no symptoms, see HPI, abdominal pain, constipation, diarrhea, nausea, vomiting, melena, hematemesis, other Genitourinary: Denies: no symptoms, see HPI, discharge, dysuria, frequency, hematuria, pain, retention, incontinence, urgency, vag bleed/dc, other Musculoskeletal: Denies: no symptoms, see HPI, back pain, gout, joint pain, joint swelling, muscle pain, muscle stiffness, other Skin: Reports: see HPI Neurological: Denies: no symptoms, see HPI, headache, numbness, paresthesia, seizure, tingling, tremors, focal weakness, syncope, dizziness, other Endocrine: Denies: no symptoms, see HPI, excessive sweating, flushing, intolerance to temperature, increased thirst, increased urine, unexplained weight loss, other All Other Systems: negative except mentioned in HPI Physical Exam Last 24 Hour Vital Signs Date Time Temp Pulse Resp B/P (MAP) Pulse Ox O2 Delivery O2 Flow Rate FiO2 02/15/19 08:00 98.6 82 18 136/82 (100) 97 02/15/19 04:00 98.7 88 18 127/78 (94) 02/15/19 00:03 98.7 85 20 112/89 (97) 02/14/19 21:36 Room Air 02/14/19 20:31 98.0 89 20 120/74 100 Room Air 02/14/19 14:44 98.1 93 18 122/71 (88) 100 Room Air 02/14/19 14:44 98.1 93 18 122/71 100 Room Air Intake and Output 02/14/19 02/15/19 19:00 07:00 Intake Total 300 ml Balance 300 ml IV Total 300 ml Laboratory Tests Test 02/14/19 17:10 02/15/19 05:35 White Blood Count 11.6 K/UL (4.8-10.8) H 9.1 K/UL (4.8-10.8) Red Blood Count 4.13 M/UL (4.70-6.10) L 3.72 M/UL (4.70-6.10) L Hemoglobin 11.2 G/DL (14.2-18.0) L 10.0 G/DL (14.2-18.0) L Hematocrit 33.8 % (42.0-52.0) L 32.1 % (42.0-52.0) L Mean Corpuscular Volume 82 FL (80-99) 86 FL (80-99) Mean Corpuscular Hemoglobin 27.1 PG (27.0-31.0) 26.8 PG (27.0-31.0) L Mean Corpuscular Hemoglobin Concent 33.2 G/DL (32.0-36.0) 31.1 G/DL (32.0-36.0) L Red Cell Distribution Width 13.2 % (11.6-14.8) 13.7 % (11.6-14.8) Platelet Count 311 K/UL (150-450) 292 K/UL (150-450) Mean Platelet Volume 5.0 FL (6.5-10.1) L 5.6 FL (6.5-10.1) L Neutrophils (%) (Auto) % (45.0-75.0) 59.8 % (45.0-75.0) Lymphocytes (%) (Auto) % (20.0-45.0) 31.0 % (20.0-45.0) Monocytes (%) (Auto) % (1.0-10.0) 5.2 % (1.0-10.0) Eosinophils (%) (Auto) % (0.0-3.0) 3.4 % (0.0-3.0) H Basophils (%) (Auto) % (0.0-2.0) 0.6 % (0.0-2.0) Differential Total Cells Counted 100 Neutrophils % (Manual) 77 % (45-75) H Lymphocytes % (Manual) 14 % (20-45) L Monocytes % (Manual) 5 % (1-10) Eosinophils % (Manual) 3 % (0-3) Basophils % (Manual) 0 % (0-2) Band Neutrophils 1 % (0-8) Platelet Estimate Adequate Platelet Morphology Normal Hypochromasia 1+ Anisocytosis 1+ Erythrocyte Sedimentation Rate 86 MM/HR (0-20) H Sodium Level 144 MMOL/L (136-145) 145 MMOL/L (136-145) Potassium Level 4.2 MMOL/L (3.5-5.1) 3.8 MMOL/L (3.5-5.1) Chloride Level 104 MMOL/L (98-107) 109 MMOL/L (98-107) H Carbon Dioxide Level 31 MMOL/L (21-32) 30 MMOL/L (21-32) Anion Gap 9 mmol/L (5-15) 6 mmol/L (5-15) Blood Urea Nitrogen 17 mg/dL (7-18) 13 mg/dL (7-18) Creatinine 1.0 MG/DL (0.55-1.30) 0.9 MG/DL (0.55-1.30) Estimat Glomerular Filtration Rate > 60 mL/min (>60) > 60 mL/min (>60) Glucose Level 96 MG/DL (74-106) 85 MG/DL (74-106) Lactic Acid Level 1.60 mmol/L (0.4-2.0) Calcium Level 9.3 MG/DL (8.5-10.1) 8.9 MG/DL (8.5-10.1) C-Reactive Protein, Quantitative 17.4 mg/dL (0.00-0.90) H Magnesium Level 2.0 MG/DL (1.8-2.4) Total Bilirubin 0.2 MG/DL (0.2-1.0) Aspartate Amino Transf (AST/SGOT) 16 U/L (15-37) Alanine Aminotransferase (ALT/SGPT) 14 U/L (12-78) Alkaline Phosphatase 124 U/L (46-116) H Total Protein 6.5 G/DL (6.4-8.2) Albumin 2.3 G/DL (3.4-5.0) L Globulin 4.2 g/dL Albumin/Globulin Ratio 0.5 (1.0-2.7) L Height (Feet): 5 Height (Inches): 9.00 Weight (Pounds): 160 Medications Current Medications Medications (Trade) Dose Ordered Sig/Tanvi Route PRN Reason Start Time Stop Time Status Last Admin Dose Admin Acetaminophen (Tylenol) 650 mg Q4H PRN ORAL Mild Pain (Pain Scale 1-3) 02/14/19 20:15 03/16/19 20:14 Acetaminophen/ Hydrocodone Bitart ([place] 5/325) 1 tab Q6H PRN ORAL Severe Breakthru Pain (>7) 02/14/19 20:15 02/21/19 20:14 Albuterol/ Ipratropium (Albuterol/ Ipratropium) 3 ml Q6H PRN HHN Shortness of Breath 02/14/19 20:15 02/19/19 20:14 Bisacodyl (Dulcolax) 10 mg HSPRN PRN RECTAL Constipation 02/14/19 20:15 03/16/19 20:14 Dextrose (Dextrose 50%) 25 ml Q30M PRN IV Hypoglycemia 02/14/19 20:15 03/16/19 20:14 Dextrose (Dextrose 50%) 50 ml Q30M PRN IV Hypoglycemia 02/14/19 20:15 03/16/19 20:14 Diphenhydramine HCl (Benadryl) 25 mg Q6H PRN ORAL Itching/Pruritis 02/14/19 20:15 03/16/19 20:14 Famotidine (Pepcid) 20 mg DAILY ORAL 02/15/19 09:00 03/17/19 08:59 02/15/19 09:53 Heparin Sodium (Porcine) (Heparin 5000 units/ml) 5,000 units EVERY 12 HOURS SUBQ 02/14/19 21:00 03/16/19 20:59 02/15/19 09:54 Lorazepam (Ativan 2mg/ml 1ml) 0.5 mg Q4H PRN IV For Anxiety 02/14/19 20:15 02/21/19 20:14 Ondansetron HCl (Zofran) 4 mg Q6H PRN IVP Nausea & Vomiting 02/14/19 20:15 03/16/19 20:14 Piperacillin Sod/ Tazobactam Sod 3.375 gm/Sodium Chloride 110 ml @ 27.5 mls/hr EVERY 8 HOURS IVPB 02/15/19 06:00 02/20/19 05:59 02/15/19 05:41 Sodium Chloride 1,000 ml @ 75 mls/hr [id number] IVLG 02/14/19 21:02 03/16/19 21:01 02/14/19 21:43 Vancomycin HCl (Vanco rx to dose) 1 ea DAILY PRN MISC Per rx protocol 02/14/19 20:15 03/16/19 20:14 Vancomycin HCl 750 mg/Sodium Chloride 275 ml @ 183.333 mls/hr Q8H IVPB 02/15/19 04:00 02/20/19 03:59 02/15/19 03:30 Objective Narrative General Appearance: alert, comfortable, no distress. speaking in full sentences Head: normocephalic, atraumatic Eyes: bilateral eye normal inspection, bilateral eye PERRL ENT: hearing grossly normal, normal voice Neck: full range of motion, supple Respiratory: lungs clear, normal breath sounds, no respiratory distress, no wheezing, speaking full sentences Cardiovascular : regular rate, rhythm, 2+ radial (R), 2+ radial (L) Neurologic: alert, oriented x3, responsive, motor strength/tone normal, sensory intact, speech normal, grossly normal Psychiatric: judgement/insight normal Skin: multiple track markings on bilateral upper extremities. Multiple possible indurated nodules of the soft tissue throughout the bilateral upper extremities. There is a larger palpable nodule on the medial aspect of the right biceps area which has surrounding erythema and warmth to palpation. This large nodule is approximately 3.5 cm in diameter no obvious palpable fluctuance. Lymphatic: no adenopathy Assessment/Plan Status: stable Assessment/Plan: 63 year old male with history of IVDU now with cellulitis bilateral upper extremities concerning for abscess. CT bilateral upper extremities Zosyn and Vancomycin follow up blood cultures Echocardiogram to rule out endocarditis. Surgical consult with Carl Granados M.D. Feb 15, 2019 11:35
--- NOTE | 2019-02-15 11:43 | NUR ---
NURSE NOTES: emissions testing technician came up to take patient to CT for left arm. But patient refused IV contrast. RN spoke to Dr. Ventura who covers for Dr. Melchor and relayed with order to do CT of left upper ex's without contrast. And also patient stated that he is on methadone. Rn will follow up.
--- NOTE | 2019-02-15 11:50 | NUR ---
NURSE NOTES: patient is off the unit for CT in stable condition.
--- NOTE | 2019-02-15 12:20 | NUR ---
NURSE NOTES: patient came back from CT in stable condition.
--- NOTE | 2019-02-15 13:40 | NUR ---
NURSE NOTES: RN spoke to [facility] [place]([phone]) to follow up for methadone and faxed information release form signed by Patient to [phone]. Will follow up.
--- NOTE | 2019-02-15 14:30 | NUR ---
NURSE NOTES: Rn placed a call to [facility] to follow up and spoke to . she said her dispensary is closed and will call back later to RN later after she checks the medical record release form.
[2019-02-15 16:00] VITALS: BP 118/70
--- NOTE | 2019-02-15 16:26 | NUR ---
*-* INSURANCE *--* ALL CLINICALS AND REVIEWS HAVE BEEN FAXED TO: [facility] P: [phone] F: [phone] (FAX CLINICALS) Addendum: 02/16/19 at 0903 by VIANCA MATA CM ncm:Daniela Lr; [phone]
--- NOTE | 2019-02-15 17:46 | NUR ---
NURSE NOTES: received call from Dr Wilson re ct arms stating "bubble / gas could be from penetration or gas forming organism" paged Dr Ventura (covering for Dr Melchor) awaiting call back
--- NOTE | 2019-02-15 17:50 | Diagnostic Imaging Report ---
. Indication: Reason For Exam: PAIN Technique: No IV contrast, per patient request. Spiral acquisitions obtained through the left upper arm. Multiplanar reconstructions were generated. Total dose length product 1506 mGycm. CTDIvol(s) 26 mGy. Radiation dose was minimized using automated exposure control Comparison: none Findings: A single gas bubble is seen within the left biceps, images 83 through 85 of series 3. A single bubble of gas is also seen within the axillary fat. There is some low-attenuation of the anteromedial bicep. No definite circumscribed fluid collection is demonstrated, although evaluation for such is limited in the absence of IV contrast demonstration. There is also mild thickening of the skin and slight infiltration of the subcutaneous fat. No bony abnormality demonstrated. No elbow joint effusion. Prominent but not frankly enlarged axillary nodes are noted. Impression: Single bubble of gas within the left biceps and another within the left axillary fat, could indicate penetrating trauma or infection with a gas-forming organism. Slight low-attenuation of the anterior portion of the left biceps musculature, could indicate myositis. No definite evidence of abscess, although evaluation for such in the absence of IV contrast demonstration is very limited. Consider ultrasound for further evaluation if there is high clinical suspicion for abscess. Prominent left axillary nodes, likely reactive Findings discussed by phone with patient's nurse at the time of interpretation The CT scanner at [facility] is accredited by the [employer] and the scans are performed using protocols designed to limit radiation exposure to as low as reasonably achievable to attain images of sufficient resolution adequate for diagnostic evaluation.
--- NOTE | 2019-02-15 17:51 | Diagnostic Imaging Report ---
Indication: Right upper extremity pain and swelling Technique: IV administration nonionic contrast. Single phase spiral acquisitions obtained through the right upper extremity Multiplanar reconstructions were generated. Total dose length product 527.43 mGycm. CTDIvol(s) 11.52 mGy. Radiation dose was minimized using automated exposure control Comparison: none Findings: A small focus of gas is seen within the right bicep, seen on image 65 of series 3. No significant swelling demonstrated. No circumscribed collections to suggest abscess demonstrated. There is mild dermal thickening and very slight infiltration of the subcutaneous fat. Prominent but not frankly enlarged lymph nodes are seen in the right axilla. The bones demonstrate mild degenerative changes of the right shoulder. The arteries and veins appear unremarkable. Impression: Single gas bubble within the right bicep. Graded indicate penetrating trauma if there is history of such. Otherwise, the possibility of infection with a gas-forming organism should be considered Very mild thickening of the dermis and slight infiltration of the subcutaneous fat may indicate cellulitis. Findings discussed by phone with patient's nurse at the time of interpretation The CT scanner at [facility] is accredited by the [employer] and the scans are performed using protocols designed to limit radiation exposure to as low as reasonably achievable to attain images of sufficient resolution adequate for diagnostic evaluation.
--- NOTE | 2019-02-15 18:51 | NUR ---
CASE MANAGEMENT: INITIAL REVIEW 63 YO M PRESENTED TO OUR ED FROM HOME CC: RIGHT ARM INFECTION PMHx: IV DRUG USE. SI:CELLULITIS. ABSCESS. T 98.1 HR 93 RR 18 B/P 122/71 SATS 100% ON RA WBC 11.6 IS: IVF @ 75 ml/HR ZOSYN IV Q8H PEPCID PO QD VANCO IV Q8H PATIENT ADMITTED TO MED/SURG 02/14/2019 @ 0010 DCP: PATIENT TO BE DISCHARGED TO HOME ONCE MEDICALLY CLEARED. PLAN OF CARE: CT UPPER EXTREMITY WO CONT LT Impression: Single bubble of gas within the left biceps and another within the left axillary fat, could indicate penetrating trauma or infection with a gas-forming organism. CT UPP EXTREMITY W CONT RT Impression: Single gas bubble within the right bicep. Graded indicate penetrating trauma if there is history of such. Addendum: 02/16/19 at 0748 by Lima Shepard CM INTERSHAVONAL
--- NOTE | 2019-02-15 18:54 | Consultation ---
History of Present Illness General Date patient seen: Feb 15, 2019 Reason for Hospitalization: Skin Rash/Abscess Present Illness HPI 63-year-old male [place] [facility] of 6 out of 10 severity pain, tenderness, swelling and erythema to the right upper extremity x2 weeks. Patient reports multiple lumps in the skin where he was "skin popping " injecting opioids. Patient with history of IV drug use he is currently on methadone he states his last use 4 days ago He reports past medical history of hepatitis C, thyroid disorder, left eye blindness in addition to his drug use. Leukocytosis in ED, exam with cellulitis. Admitted for care surgery called to evaluate and assist with care Patient seen, chart reviewed, patient examined. states he feels great. no n/v/f /c Allergies: Coded Allergies: No Known Allergies (Unverified , 08/28/18) Medication History Scheduled Clindamycin Hcl* (Clindamycin Hcl*), 300 MG ORAL FOUR TIMES A DAY No Known Medications* (NKM - No Known Medications*), 0 ., (Reported) Trimethoprim/Sulfamethoxazole 160/800* (Bactrim Ds Tablet*), 1 TAB ORAL Q12H Trimethoprim/Sulfamethoxazole 160/800* (Bactrim Ds Tablet*), 1 TAB ORAL Q12H Trimethoprim/Sulfamethoxazole 160/800* (Bactrim Ds Tablet*), 2 TAB ORAL Q12H Scheduled PRN Hydrocodone/Acetaminophen 5-325* (Hydrocodone/Acetaminophen 5-325*), 1 TAB ORAL Q6H PRN for For Pain Ibuprofen* (Motrin*), 600 MG ORAL Q8H PRN for For Pain OXYCODONE HCl* (Roxicodone*), 15 MG ORAL Q6H PRN for For Pain, (Reported) Patient History History Provided By: Patient, Medical Record, PMD Healthcare decision maker Resuscitation status Full Code Advanced Directive on File No Past Medical/Surgical History Past Medical/Surgical History: (1) Abscess (2) Seizure disorder (3) Cellulitis (4) Abscess (5) Gastritis (6) Heroin abuse (7) Intravenous drug user (8) Incisional abscess (9) Encounter for incision and drainage procedure Review of Systems Review of Symptoms General ROS: no weight loss or fever Psychological ROS: no depression or mood changes, no memory loss Ophthalmic ROS: no visual changes or eye irritation ENT ROS: no nasal congestion, hearing loss, dizziness Allergy and Immunology ROS: no allergic symptoms or urticaria Hematological and Lymphatic ROS: no swollen glands, unusual bleeding or bruising Endocrine ROS: no polyuria, polydipsia, weight changes, temperature intolerance Respiratory ROS: no cough, shortness of breath, or wheezing Cardiovascular ROS: no chest pain or dyspnea on exertion Gastrointestinal ROS: denies abdominal pain, no bright red blood in stool. Musculoskeletal ROS: no myalgias or arthralgias Neurological ROS: no TIA or stroke symptoms Dermatological ROS: no new or changing skin lesions, rashes or pruritis Physical Exam Physical Exam General appearance: alert, cooperative, no distress, appears stated age Head: Normocephalic, without obvious abnormality, atraumatic Eyes: conjunctivae/corneas clear. PERRL, EOM's intact. Fundi benign Throat: Lips, mucosa, and tongue normal. Teeth and gums normal Neck: supple, symmetrical, trachea midline, no adenopathy, thyroid: not enlarged, symmetric, no tenderness/mass/nodules, no carotid bruit and no JVD Lungs: clear to auscultation bilaterally Heart: regular rate and rhythm, S1, S2 normal, no murmur, click, rub or gallop Abdomen: soft, non-tender. Bowel sounds normal. No masses, no organomegaly Extremities: extremities upper extremities noted with chronic scarring from multiple prior infections and skin popping minimal cellulitis no abscess nontender Pulses: 2+ and symmetric Skin: Skin color, texture, turgor normal. No rashes or lesions Neurologic: Grossly normal Last 24 Hour Vital Signs Date Time Temp Pulse Resp B/P (MAP) Pulse Ox O2 Delivery O2 Flow Rate FiO2 02/15/19 16:00 97.8 62 18 118/70 (86) 98 02/15/19 11:34 97.5 59 18 116/62 (80) 02/15/19 09:00 Room Air 02/15/19 08:00 98.6 82 18 136/82 (100) 97 02/15/19 04:00 98.7 88 18 127/78 (94) 02/15/19 00:03 98.7 85 20 112/89 (97) 02/14/19 21:36 Room Air 02/14/19 20:31 98.0 89 20 120/74 100 Room Air Intake and Output 9/2/19 9/3/19 19:00 07:00 Intake Total 300 ml Balance 300 ml IV Total 300 ml Laboratory Tests Test 02/15/19 05:35 02/15/19 18:37 White Blood Count 9.1 K/UL (4.8-10.8) Red Blood Count 3.72 M/UL (4.70-6.10) L Hemoglobin 10.0 G/DL (14.2-18.0) L Hematocrit 32.1 % (42.0-52.0) L Mean Corpuscular Volume 86 FL (80-99) Mean Corpuscular Hemoglobin 26.8 PG (27.0-31.0) L Mean Corpuscular Hemoglobin Concent 31.1 G/DL (32.0-36.0) L Red Cell Distribution Width 13.7 % (11.6-14.8) Platelet Count 292 K/UL (150-450) Mean Platelet Volume 5.6 FL (6.5-10.1) L Neutrophils (%) (Auto) 59.8 % (45.0-75.0) Lymphocytes (%) (Auto) 31.0 % (20.0-45.0) Monocytes (%) (Auto) 5.2 % (1.0-10.0) Eosinophils (%) (Auto) 3.4 % (0.0-3.0) H Basophils (%) (Auto) 0.6 % (0.0-2.0) Sodium Level 145 MMOL/L (136-145) Potassium Level 3.8 MMOL/L (3.5-5.1) Chloride Level 109 MMOL/L (98-107) H Carbon Dioxide Level 30 MMOL/L (21-32) Anion Gap 6 mmol/L (5-15) Blood Urea Nitrogen 13 mg/dL (7-18) Creatinine 0.9 MG/DL (0.55-1.30) Estimat Glomerular Filtration Rate > 60 mL/min (>60) Glucose Level 85 MG/DL (74-106) Calcium Level 8.9 MG/DL (8.5-10.1) Magnesium Level 2.0 MG/DL (1.8-2.4) Total Bilirubin 0.2 MG/DL (0.2-1.0) Aspartate Amino Transf (AST/SGOT) 16 U/L (15-37) Alanine Aminotransferase (ALT/SGPT) 14 U/L (12-78) Alkaline Phosphatase 124 U/L (46-116) H Total Protein 6.5 G/DL (6.4-8.2) Albumin 2.3 G/DL (3.4-5.0) L Globulin 4.2 g/dL Albumin/Globulin Ratio 0.5 (1.0-2.7) L Vancomycin Level Trough Pending Height (Feet): 5 Height (Inches): 9.00 Weight (Pounds): 160 Medications Current Medications Medications (Trade) Dose Ordered Sig/Tanvi Route PRN Reason Start Time Stop Time Status Last Admin Dose Admin Acetaminophen (Tylenol) 650 mg Q4H PRN ORAL Mild Pain (Pain Scale 1-3) 02/14/19 20:15 03/16/19 20:14 Acetaminophen/ Hydrocodone Bitart (Virgil 5/325) 1 tab Q6H PRN ORAL Severe Breakthru Pain (>7) 02/14/19 20:15 02/21/19 20:14 Albuterol/ Ipratropium (Albuterol/ Ipratropium) 3 ml Q6H PRN HHN Shortness of Breath 02/14/19 20:15 02/19/19 20:14 Bisacodyl (Dulcolax) 10 mg HSPRN PRN RECTAL Constipation 02/14/19 20:15 03/16/19 20:14 Dextrose (Dextrose 50%) 25 ml Q30M PRN IV Hypoglycemia 02/14/19 20:15 03/16/19 20:14 Dextrose (Dextrose 50%) 50 ml Q30M PRN IV Hypoglycemia 02/14/19 20:15 03/16/19 20:14 Diphenhydramine HCl (Benadryl) 25 mg Q6H PRN ORAL Itching/Pruritis 02/14/19 20:15 03/16/19 20:14 Famotidine (Pepcid) 20 mg DAILY ORAL 02/15/19 09:00 03/17/19 08:59 02/15/19 09:53 Heparin Sodium (Porcine) (Heparin 5000 units/ml) 5,000 units EVERY 12 HOURS SUBQ 02/14/19 21:00 03/16/19 20:59 02/15/19 09:54 Lorazepam (Ativan 2mg/ml 1ml) 0.5 mg Q4H PRN IV For Anxiety 02/14/19 20:15 02/21/19 20:14 Ondansetron HCl (Zofran) 4 mg Q6H PRN IVP Nausea & Vomiting 02/14/19 20:15 03/16/19 20:14 Piperacillin Sod/ Tazobactam Sod 3.375 gm/Sodium Chloride 110 ml @ 27.5 mls/hr EVERY 8 HOURS IVPB 02/15/19 06:00 02/20/19 05:59 02/15/19 16:51 Sodium Chloride 1,000 ml @ 75 mls/hr [id number] IVLG 02/14/19 21:02 03/16/19 21:01 02/14/19 21:43 Vancomycin HCl (Vanco rx to dose) 1 ea DAILY PRN MISC Per rx protocol 02/14/19 20:15 03/16/19 20:14 Vancomycin HCl 750 mg/Sodium Chloride 275 ml @ 183.333 mls/hr Q8H IVPB 02/15/19 04:00 02/20/19 03:59 02/15/19 12:00 Assessment/Plan Problem List: (1) Cellulitis Assessment & Plan: This is a 63-year-old male with known history of IV drug abuse for many years who is had multiple prior abscesses and infections requiring I&D in the past who presented to [facility] complaining of worsening bilateral upper extremity pain. Stated that 4 days ago he was using IV drugs and skin popping and since developing a little bit of discomfort. On examination was identified to have very abnormal skin lesions throughout bilateral upper extremities. Labs with minimal leukocytosis. Patient admitted for IV antibiotics and further work-up care and surgical evaluation. Patient was currently seen and states he is doing very well denies any nausea vomiting fever chills. States he is well. States he currently has no pain. States he just wanted to ensure since he was popping that no new abscesses reforming and he was feeling some discomfort and pain and thought it would be safest checked. CTs I did reviewed and identified. Patient has a single focus of gas likely from injection site. On examination and clinically there is no concern for acute gangrenous necrotizing infection. There is only minimal cellulitis of the arm bilaterally but mainly chronic skin scarring and tissue. No definitive abscess could be identified or palpated. In discussing these findings with patient he states that he does not have anything he feels currently needs to be I indeed and does not want any surgical intervention at this time. Patient states he just wants to eat have some medication feel little bit better before leaving. No acute surgical intervention planned at this time. Continue IV antibiotics as per infectious disease can transition to oral for discharge We will monitor her arms to ensure cellulitis resolving Trend labs Thank you for allowing me participation patient's care will follow with recommendations ICD Codes: L03.90 - Cellulitis, unspecified SNOMED: 168239624 Qualifiers: Qualified Codes: L03.113 - Cellulitis of right upper limb (2) Intravenous drug user ICD Codes: F19.90 - Other psychoactive substance use, unspecified, uncomplicated SNOMED: 487313665 (3) Gastritis ICD Codes: K29.70 - Gastritis, unspecified, without bleeding SNOMED: 6000302 (4) Seizure disorder ICD Codes: G40.909 - Epilepsy, unspecified, not intractable, without status epilepticus SNOMED: 496128086 (5) Heroin abuse ICD Codes: F11.10 - Opioid abuse, uncomplicated SNOMED: 166141316 Elvis Ledesma Feb 15, 2019 18:54
--- NOTE | 2019-02-15 19:25 | NUR ---
HAND-OFF: Report given to Kasey.
[2019-02-15 20:00] VITALS: BP 129/63
--- NOTE | 2019-02-15 20:00 | NUR ---
NURSE NOTES: Patient received in bed, awake, alert. No complaints at this time. IV zosyn infusing, no signs of infiltration at this time. Call light in reach. Instructed to call for assistance. Will monitor.
[2019-02-15] MEDS: Vancomycin 500mg/D5W 110ml IVPB SCH ×2 (22:08)
[2019-02-16] VITALS: BP 137/75
[2019-02-16 04:58] VITALS: BP 127/68
[2019-02-16] MEDS: Vancomycin 500mg/D5W 110ml IVPB SCH ×4 (05:00→14:22)
[2019-02-16] MEDS: Piperacillin/Tazobactam 3.375 GM in NS 110 ML IVPB SCH ×3 (06:00→21:42)
--- NOTE | 2019-02-16 07:18 | NUR ---
HAND-OFF: Report given to Saurabh JONES.
[2019-02-16 08:00] VITALS: BP 119/59
[2019-02-16] MEDS: Heparin 5000 units/ml inj SUBQ SCH ×2 (09:17→21:44)
[2019-02-16 10:57] LABS: ANION GAP 9 mmol/L (5-15); BLOOD UREA NITROGEN 12 mg/dL (7-18); CARBON DIOXIDE 25 MMOL/L (21-32); CHLORIDE 109 MMOL/L (98-107); CREATININE 1.1 MG/DL (0.55-1.30); POTASSIUM 4.1 MMOL/L (3.5-5.1); SODIUM 143 MMOL/L (136-145)
[2019-02-16 12:00] VITALS: BP 116/57
--- NOTE | 2019-02-16 12:33 | General Progress Note ---
Assessment/Plan Status: stable Assessment/Plan: 63 year old male with history of IVDU now with cellulitis bilateral upper extremities concerning for abscess. CT bilateral upper extremities- reviewed, mild gas formation IV. Zosyn and Vancomycin follow up blood cultures Echocardiogram to rule out endocarditis. Surgical consult with Dr. Ledesma, case discussed. No surgical intervention I spent 40 minutes on the encounter. 50% on counselling and care coordination Subjective Date patient seen: Feb 16, 2019 ROS Limited/Unobtainable: No Constitutional: Denies: no symptoms, chills, diaphoresis, fever, malaise, weakness, other HEENT: Denies: no symptoms, eye pain, blurred vision, tearing, double vision, ear pain, ear discharge, nose pain, nose congestion, throat pain, throat swelling, mouth pain, mouth swelling, other Cardiovascular: Denies: no symptoms, chest pain, edema, irregular heart rate, lightheadedness, palpitations, syncope, other Respiratory: Denies: no symptoms, cough, orthopnea, shortness of breath, SOB with excertion, SOB at rest, sputum, stridor, wheezing, other Gastrointestinal/Abdominal: Denies: no symptoms, abdomen distended, abdominal pain, black stools, tarry stools, blood in stool, constipated, diarrhea, difficulty swallowing, nausea, poor appetite, poor fluid intake, rectal bleeding , vomiting, other Genitourinary: Denies: no symptoms, burning, discharge, frequency, flank pain, hematuria, incontinence, pain, urgency, other Neurologic/Psychiatric: Denies: no symptoms, anxiety, depressed, emotional problems, headache, numbness, paresthesia, pre-existing deficit, seizure, tingling, tremors, weakness, other Endocrine: Denies: no symptoms, excessive sweating, flushing, intolerance to cold, intolerance to heat, increased hunger, increased thirst, increased urine, unexplained weight gain, unexplained weight loss, other Hematologic/Lymphatic: Denies: no symptoms, anemia, easy bleeding, easy bruising, other Allergies: Coded Allergies: No Known Allergies (Unverified , 08/28/18) All Systems: reviewed and negative except above Subjective seen at bedside no complaints wants to go home Objective Last 24 Hour Vital Signs Date Time Temp Pulse Resp B/P (MAP) Pulse Ox O2 Delivery O2 Flow Rate FiO2 02/16/19 09:00 Room Air 02/16/19 08:00 98.1 62 18 119/59 (79) 97 02/16/19 05:58 58 18 97 Room Air 02/16/19 04:58 97.3 58 18 127/68 (87) 97 02/16/19 00:00 98.1 60 18 137/75 (95) 97 02/15/19 21:00 Room Air 02/15/19 20:00 97.7 96 18 129/63 (85) 95 02/15/19 16:00 97.8 62 18 118/70 (86) 98 Intake and Output 02/15/19 02/16/19 19:00 07:00 Intake Total 1650.000 ml 1537.5 ml Balance 1650.000 ml 1537.5 ml Intake Oral 1320 ml 600 ml IV Total 330.000 ml 937.5 ml # Voids 4 3 Laboratory Tests 02/15/19 18:37: Vancomycin Level Trough 18.2H 02/16/19 10:28: Sodium Level 143, Potassium Level 4.1, Chloride Level 109H, Carbon Dioxide Level 25, Anion Gap 9, Blood Urea Nitrogen 12, Creatinine 1.1, Estimat Glomerular Filtration Rate > 60, Glucose Level 96, Calcium Level 9.0 Height (Feet): 5 Height (Inches): 9.00 Weight (Pounds): 151 Objective General Appearance: alert, comfortable, no distress. speaking in full sentences Head: normocephalic, atraumatic Eyes: bilateral eye normal inspection, bilateral eye PERRL ENT: hearing grossly normal, normal voice Neck: full range of motion, supple Respiratory: lungs clear, normal breath sounds, no respiratory distress, no wheezing, speaking full sentences Cardiovascular : regular rate, rhythm, 2+ radial (R), 2+ radial (L) Neurologic: alert, oriented x3, responsive, motor strength/tone normal, sensory intact, speech normal, grossly normal Psychiatric: judgement/insight normal Skin: multiple track markings on bilateral upper extremities. Multiple possible indurated nodules of the soft tissue throughout the bilateral upper extremities. There is a larger palpable nodule on the medial aspect of the right biceps area which has surrounding erythema and warmth to palpation. This large nodule is approximately 3.5 cm in diameter no obvious palpable fluctuance. Lymphatic: no adenopathy Carl Ventura M.D. Feb 16, 2019 12:33
--- NOTE | 2019-02-16 13:36 | NUR ---
CASE MANAGEMENT: REVIEW 02/16/2019 SI:CELLULITIS. ABSCESS. T 97.3 HR 58 RR 18 B/P 127/68 SATS 97% ON RA CL 109 IS: IVF @ 75 ml/HR ZOSYN IV Q8H PEPCID PO QD VANCO IV Q8H METHADONE PO QD MED/SURG STATUS DCP: PATIENT TO BE DISCHARGED TO HOME ONCE MEDICALLY CLEARED. PLAN OF CARE: NO SURGICAL INTERVENTION
--- NOTE | 2019-02-16 14:28 | Surgery Progress Note ---
Surgery Progress Note Subjective Symptoms: improved, pain absent, tolerating diet, voiding well, passing flatus , BM, pain decreased Additional Comments states he feels better today no n/v/f/c comfortable no complaints Objective Last 24 Hour Vital Signs Date Time Temp Pulse Resp B/P (MAP) Pulse Ox O2 Delivery O2 Flow Rate FiO2 02/16/19 09:00 Room Air 02/16/19 08:00 98.1 62 18 119/59 (79) 97 02/16/19 05:58 58 18 97 Room Air 02/16/19 04:58 97.3 58 18 127/68 (87) 97 02/16/19 00:00 98.1 60 18 137/75 (95) 97 02/15/19 21:00 Room Air 02/15/19 20:00 97.7 96 18 129/63 (85) 95 02/15/19 16:00 97.8 62 18 118/70 (86) 98 I&O Intake and Output 02/15/19 02/16/19 19:00 07:00 Intake Total 1650.000 ml 1537.5 ml Balance 1650.000 ml 1537.5 ml Intake Oral 1320 ml 600 ml IV Total 330.000 ml 937.5 ml # Voids 4 3 Dressing: dry Wound: clean Cardiovascular: RSR Respiratory: clear Abdomen: soft, flat, non-tender, non-distended Extremities: edema, no tenderness, no cyanosis Laboratory Tests Test 02/15/19 18:37 02/16/19 10:28 Vancomycin Level Trough 18.2 ug/mL (5.0-12.0) H Sodium Level 143 MMOL/L (136-145) Potassium Level 4.1 MMOL/L (3.5-5.1) Chloride Level 109 MMOL/L (98-107) H Carbon Dioxide Level 25 MMOL/L (21-32) Anion Gap 9 mmol/L (5-15) Blood Urea Nitrogen 12 mg/dL (7-18) Creatinine 1.1 MG/DL (0.55-1.30) Estimat Glomerular Filtration Rate > 60 mL/min (>60) Glucose Level 96 MG/DL (74-106) Calcium Level 9.0 MG/DL (8.5-10.1) Plan Problems: (1) Cellulitis Assessment & Plan: This is a 63-year-old male with known history of IV drug abuse for many years who is had multiple prior abscesses and infections requiring I&D in the past who presented to [facility] complaining of worsening bilateral upper extremity pain. Stated that 4 days ago he was using IV drugs and skin popping and since developing a little bit of discomfort. On examination was identified to have very abnormal skin lesions throughout bilateral upper extremities. Labs with minimal leukocytosis. Patient admitted for IV antibiotics and further work-up care and surgical evaluation. Patient was currently seen and states he is doing very well denies any nausea vomiting fever chills. States he is well. States he currently has no pain. States he just wanted to ensure since he was popping that no new abscesses reforming and he was feeling some discomfort and pain and thought it would be safest checked. CTs I did reviewed and identified. Patient has a single focus of gas likely from injection site. On examination and clinically there is no concern for acute gangrenous necrotizing infection. There is only minimal cellulitis of the arm bilaterally but mainly chronic skin scarring and tissue. No definitive abscess could be identified or palpated. In discussing these findings with patient he states that he does not have anything he feels currently needs to be I indeed and does not want any surgical intervention at this time. Patient states he just wants to eat have some medication feel little bit better before leaving. No acute surgical intervention planned at this time. Continue IV antibiotics as per infectious disease can transition to oral for discharge We will monitor her arms to ensure cellulitis resolving Trend labs Thank you for allowing me participation patient's care will follow with recommendations (2) Intravenous drug user (3) Gastritis (4) Seizure disorder (5) Heroin abuse Elvis Ledesma Feb 16, 2019 14:28
--- NOTE | 2019-02-16 15:52 | NUR ---
*-* INSURANCE *--* ALL CLINICALS AND REVIEWS HAVE BEEN FAXED TO: [facility] P: [phone] F: [phone] (FAX CLINICALS) abbim:Daniela Lr; [phone]
[2019-02-16 16:00] VITALS: BP 131/70
--- NOTE | 2019-02-16 19:09 | NUR ---
HAND-OFF: Report given to Wilder.
[2019-02-16 20:00] VITALS: BP 138/71
--- NOTE | 2019-02-16 20:02 | NUR ---
NURSE NOTES: Pt is in bed, awake and alert. No acute distress noted. Pt is on room air. Pt has bilat upper arm swelling. Bed locked low in position,side rails up and call light within reach. Pt will be monitored.
[2019-02-17] VITALS: BP 137/64
[2019-02-17] MEDS ORDERED: Vancomycin 750mg/D5W 275ml IVPB SCH ×2 (00:30)
--- NOTE | 2019-02-17 03:07 | NUR ---
NURSE NOTES: Pt is in bed, asleep. No acute distress noted. Bilat upper extremities appear less swollen . Antibiotics are administered as ordered.
--- NOTE | 2019-02-17 05:00 | NUR ---
NURSE NOTES: [employer] (Andrew) came to draw blood for lab, pt requested have the blood drawn later after breakfast.
[2019-02-17] MEDS: Piperacillin/Tazobactam 3.375 GM in NS 110 ML IVPB SCH (05:59)
--- NOTE | 2019-02-17 07:25 | NUR ---
HAND-OFF: Report given to Fernando Vasquez RN.
--- NOTE | 2019-02-17 08:12 | NUR ---
NURSE NOTES: Received report from ROBERT Hdz. The patient is resting on the bed without acute distress or shortness of breath. The patient's bed in the lowest position, call light in reach, and fall and aspiration precaution reinforced. IV site on left hand 24G intact and patent. Will continue plano f care.
[2019-02-17] MEDS: Heparin 5000 units/ml inj SUBQ SCH ×2 (09:00→09:18)
--- NOTE | 2019-02-17 10:30 | NUR ---
NURSE NOTES: The patient insisted that he would like to leave hospital against medical advice. Educated the patient regarding risk and consequences involved in leaving hospital and the benefits of continued treatment and hospitalization x3 but still like to leave the hospital against the medical advice. Notified to Dr. Melchor and Dr. Ventura regarding the patient's decision. Notified to the charge nurse for the patient's decision. Leaving hospital against medical advice form signed by the patient. IV and nameband removed. The patient's belongings checked with the patient and signed by the patient. The patient left the hospital without acute discomfort. The patient left the hospital in a safe manner.
--- NOTE | 2019-02-17 14:43 | Discharge Summary ---
Discharge Summary Hospital Course Date of Admission Feb 14, 2019 at 17:10 Date of Discharge Feb 17, 2019 at 10:30 Admitting Diagnosis Cellulitis, Abscess HPI Aldana, Ed is a 63 year old male who was admitted on Feb 14, 2019 at 17:10 for Cellulitis,Abscess Consultations Gen surgery: Dr. Ledesma Procedures CT bilateral upper extremities Hospital Course 63 year old male with history of IVDU now with cellulitis bilateral upper extremities concerning for abscess. Admitted to the hospital. CT bilateral upper extremities- reviewed, mild gas formation. He was started on IV Zosyn and Vancomycin. Blood cultures negative until 48hours. Surgical consult obtained. No surgical intervention planned. Patient signed out AMA. I spent 20 minutes on the encounter. Discharge Condition Upon Discharge: stable Discharge Disposition Patient signed out AMA Discharge Diagnoses: (1) Cellulitis (2) Intravenous drug user (3) Moderate protein-calorie malnutrition Carl Ventura M.D. Feb 17, 2019 14:43
--- NOTE | 2019-02-17 16:05 | Surgery Progress Note ---
Surgery Progress Note Subjective Symptoms: improved, pain absent, tolerating diet, voiding well, passing flatus , BM Objective Last 24 Hour Vital Signs Date Time Temp Pulse Resp B/P (MAP) Pulse Ox O2 Delivery O2 Flow Rate FiO2 02/17/19 10:00 64 19 96 Room Air 21 02/17/19 09:00 Room Air 02/17/19 00:00 98.1 56 18 137/64 (88) 98 02/16/19 21:00 Room Air 02/16/19 20:00 98.4 56 18 138/71 (93) 97 02/16/19 19:51 78 18 96 Room Air 21 I&O Intake and Output 02/16/19 02/17/19 19:00 07:00 Intake Total 890.0 ml 1312.500 ml Balance 890.0 ml 1312.500 ml Intake Oral 500 ml IV Total 390.0 ml 1312.500 ml # Voids 3 4 # Bowel Movements 3 Dressing: dry Wound: clean Cardiovascular: RSR Respiratory: clear Abdomen: soft, flat, non-tender, present bowel sounds, non-distended Extremities: no edema, no tenderness, no cyanosis, other Plan Problems: (1) Cellulitis Assessment & Plan: This is a 63-year-old male with known history of IV drug abuse for many years who is had multiple prior abscesses and infections requiring I&D in the past who presented to [facility] complaining of worsening bilateral upper extremity pain. Stated that 4 days ago he was using IV drugs and skin popping and since developing a little bit of discomfort. On examination was identified to have very abnormal skin lesions throughout bilateral upper extremities. Labs with minimal leukocytosis. Patient admitted for IV antibiotics and further work-up care and surgical evaluation. Patient was currently seen and states he is doing very well denies any nausea vomiting fever chills. States he is well. States he currently has no pain. States he just wanted to ensure since he was popping that no new abscesses reforming and he was feeling some discomfort and pain and thought it would be safest checked. CTs I did reviewed and identified. Patient has a single focus of gas likely from injection site. On examination and clinically there is no concern for acute gangrenous necrotizing infection. There is only minimal cellulitis of the arm bilaterally but mainly chronic skin scarring and tissue. No definitive abscess could be identified or palpated. In discussing these findings with patient he states that he does not have anything he feels currently needs to be I indeed and does not want any surgical intervention at this time. Patient states he just wants to eat have some medication feel little bit better before leaving. No acute surgical intervention planned at this time. Continue IV antibiotics as per infectious disease can transition to oral for discharge We will monitor her arms to ensure cellulitis resolving okay to d/c outpatient follow up time of note does not reflect when patient was seen Thank you for allowing me participation patient's care will follow with recommendations (2) Intravenous drug user (3) Gastritis (4) Seizure disorder (5) Heroin abuse Elvis Ledesma Feb 17, 2019 16:05
--- NOTE | 2019-02-17 16:40 | NUR ---
*-* INSURANCE *--* DISCHARGE SUMMARY HAVE BEEN FAXED TO: [facility] P: [phone] F: [phone] (FAX CLINICALS) abbim:Daniela Lr; [phone]
== END 2019-02-17 10:30 | disposition left against medical advice (07) | DRG 383 ==
LOC: EMR 14:58 → 4E 17:10 → EDBEDREQ 18:17
DX: L03.114 Cellulitis of left upper limb (principal); L03.113 Cellulitis of right upper limb; K29.70 Gastritis, unspecified, without bleeding; G40.909 Epilepsy, unspecified, not intractable, without status epilepticus; F11.10 Opioid abuse, uncomplicated; E44.0 Moderate protein-calorie malnutrition; Z68.22 Body mass index [BMI] 22.0-22.9, adult
CPT/HCPCS: 36415; 80048; 80053; 80202; 83605; 83735; 85007; 85025; 85651; 86140; 87040; 93005; 94664; 96365; 96366; 96368; 99285